=== PATIENT | male | born 1970 | race Caucasian/White ===

== ENCOUNTER 2020-03-18 13:18 | Inpatient (IN) | payer SELFPAY ==
[~2020-03-18] VITALS: Ht 177.8 cm; Wt 98.3 kg
[2020-03-18] MEDS ORDERED: ADENOSINE 6 MG/2 ML ONE ×2 (13:42→14:03)
[2020-03-18] MEDS ORDERED: SODIUM CHLORIDE FLUSH 10ML SYR IVF ONE (14:00)
[2020-03-18] MEDS ORDERED: ONDANSETRON 2MG/ML, 2ML IVPush ONE ×2 (14:00→14:30)
[2020-03-18] MEDS ORDERED: ASPIRIN 81 MG TABLET CHEW PO ONE (14:00)
[2020-03-18] MEDS ORDERED: DILTIAZEM 5 MG/ML, 5ML ONE (14:06)
--- NOTE | 2020-03-18 14:10 | NUR ---
pt presents to ED with c/o n/v, chest pain, generalized abd pain, diaphoresis onset yesterday 1800. pt has hx svt. pt awake, drowsy, oriented x4. resps even and unlabored. 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 piv placed to lac 18g, positional. at direction of MD Mullen, 1355 6 mg adenosine admin with no response. left EJ started by this RN, 18 g. 6 mg adenosine admin at 1401 with no response. 12 mg adenosine admin at 1403 with no response. ordered 10mg diltiazem IV push, and prep for electrical cardioversion. 10mg diltiazem pushed slowly IV at 1410, HR remains 200-2110 SVT., s/o at bedside.
[2020-03-18] MEDS ORDERED: ASPIRIN 81 MG TABLET CHEW ONE (14:17)
[2020-03-18] MEDS ORDERED: MAGNESIUM SULFATE/D5W 100 ML ONE (14:21)
[2020-03-18] MEDS ORDERED: MAGNESIUM SULFATE 1 GM in SODIUM CHLORIDE 0.9% 100 ML IVPB ONE (14:30)
[2020-03-18] MEDS ORDERED: ADENOSINE 6 MG/2 ML IVPush ONE ×2 (14:30)
[2020-03-18] MEDS ORDERED: PLEASE ENTER ALLERGIES MC SCH (14:30)
[2020-03-18] MEDS ORDERED: DILTIAZEM 5 MG/ML, 5ML IV ONE (14:30)
[2020-03-18] MEDS ORDERED: ETOMIDATE 20 MG/10 ML IVPush ONE (14:30)
[2020-03-18] MEDS ORDERED: VERAPAMIL 2.5 MG/ML, 2ML IVPush ONE (14:30)
[2020-03-18] MEDS ORDERED: VERAPAMIL 2.5 MG/ML, 2ML ONE (14:31)
[2020-03-18] MEDS ORDERED: ONDANSETRON 2MG/ML, 2ML ONE ×2 (14:32→18:03)
[2020-03-18 14:47] LABS: BASOPHILS % (AUTO) 1 % (0-1); EOSINOPHILS % (AUTO) 1 % (1-7); LYMPHOCYTES % (AUTO) 8 % (22-44); MEAN CORPUSCULAR HEMOGLOBIN 32.5 pg (27.5-34.5); MEAN CORPUSCULAR HGB CONC 32.4 g/dL (33.2-36.2); MEAN PLATELET VOLUME 8.1 fL (7.4-10.4); MONOCYTES % (AUTO) 6 % (2-9); NEUTROPHILS % (AUTO) 84 % (42-75); PLATELET COUNT 299 x10^3/uL (130-400); RED BLOOD COUNT 5.05 x10^6/uL (4.38-5.82); RED CELL DISTRIBUTION WIDTH 13.3 % (9.4-14.8)
--- NOTE | 2020-03-18 14:50 | NUR ---
approx 1 min after verapamil administration (pushed slowly over 3 min), pt converted to NSR/sinus tach rate 80s-90s. pt has occaisional pvc. MD Mullen at bedside for administration. repeat EKG taken and reviewed by MD once pt converted. MD aware pt saturating 91% on 7L oxygen via NC. pt awake, drowsy, oriented. resps even and unlabored. RN instructed to hold aspirin at this time until it is certain pt will not need electrical cardioversion.
[2020-03-18 14:57] LABS: T4 (THYROXINE) 5.5 mcg/dL (4.5-12.1)
[2020-03-18 14:59] LABS: ALBUMIN 3.5 g/dL (3.4-5.0); ANION GAP 7 mmol/L (5-15); CALCIUM 8.7 mg/dL (8.5-10.1); CHLORIDE 109 mmol/L (98-107); CREATININE 1.57 mg/dL (0.7-1.3)
[2020-03-18 15:04] LABS: TROPONIN I 0.421 ng/mL (0.000-0.045)
[2020-03-18 15:07] LABS: MD SCAN
--- NOTE | 2020-03-18 15:09 | NUR ---
RADIOLOGY PAGED TO PERFORM CXR.
--- NOTE | 2020-03-18 15:18 | NUR ---
REPORT GIVEN TO MARLEN ROBERTSON WHO IS ASSUMING CARE. 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
--- NOTE | 2020-03-18 15:20 | NUR ---
GLADIS MORAN AWARE OF TROP 0.421 , NOTIFIED PT MEETING [facility] CRITERIA, NO SOURCE OF INFECTION AT THIS TIME. Addendum: 03/18/20 at 1521 by ANAYA GLADIS MORAN AWARE OF TROP 0.421 , NOTIFIED PT MEETING [facility] CRITERIA, NO SOURCE OF INFECTION AT THIS TIME. STATES HE DOES NOT SUSPECT SEPSIS AT THIS TIME.
--- NOTE | 2020-03-18 15:28 | NUR ---
REPORT FROM FRAN RN WITH ASSESSMENT PATIENT HR NOW 80-95 (NO P WAVE NOTED). ASLSO POX 88 ON 7L OXYMASK NO WOB NOTED, LUNGS CLEAR BILATERALLY PROVIDER AWARE NO CHEST PAIN OR SOB MEDICATED PER EMAR WITH 162 OF ASPIRIN
--- NOTE | 2020-03-18 15:42 | NUR ---
CXR AT BEDSIDE
--- NOTE | 2020-03-18 16:15 | NUR ---
to ct scan remain in non p wave rhythm at 90bpm remains without pain/sob Still requiring 7l/min via mask
[2020-03-18] MEDS ORDERED: OMNIPAQUE 350 MG/ML, 100ML BOTTLE ONE (16:36)
--- NOTE | 2020-03-18 16:39 | NUR ---
BACK FROM CT SCAN. RHYTHM CHANGE NOTED (RATE REMAIN 80-90) REPEAT EKG OBTAINE. PATIENT REMAINS ASYMPTOMATIC
[2020-03-18] MEDS ORDERED: LORazepam 0.5MG TABLET PO PRN (17:30)
[2020-03-18] MEDS ORDERED: LORazepam 1MG TABLET PO PRN ×4 (17:30)
[2020-03-18] MEDS ORDERED: ONDANSETRON 2MG/ML, 2ML IVPush PRN (17:30)
[2020-03-18] MEDS ORDERED: ONDANSETRON ODT 4 MG PO PRN (17:30)
[2020-03-18] MEDS ORDERED: SENNA/DOCUSATE TABLET PO PRN (17:30)
[2020-03-18] MEDS ORDERED: ACETAMINOPHEN 500 MG TABLET PO PRN (17:30)
[2020-03-18] MEDS: METOPROLOL TARTRATE 25 MG TAB PO SCH ×2 (18:00→18:52)
[2020-03-18] MEDS ORDERED: ENOXAPARIN 40 MG/0.4 ML ONE (18:02)
[2020-03-18] MEDS ORDERED: LORazepam 1MG TABLET ONE (18:03)
[2020-03-18] MEDS: LACTATED RINGERS 1,000 ML IV SCH (18:36)
[2020-03-18] MEDS: ENOXAPARIN 40 MG/0.4 ML SQ SCH (18:37)
--- NOTE | 2020-03-18 18:39 | NUR ---
METOPROLOL HELD-B/P 100/60
--- NOTE | 2020-03-18 18:45 | NUR ---
Dr. solorio called uin regard to holding metoprolol-provider would like patient to have med regardless. 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
[2020-03-18] MEDS ORDERED: METOPROLOL TARTRATE 25 MG TAB ONE (18:50)
[2020-03-18 19:15] VITALS: BP 116/83
[2020-03-18] MEDS ORDERED: NITROGLYCERIN 0.4 MG BOTTLE (25 TABS) SL PRN (23:30)
[2020-03-18] MEDS ORDERED: NITROGLYCERIN 0.4 MG/SPRAY SL PRN (23:30)
[2020-03-18 23:35] VITALS: BP 132/79
[2020-03-18] MEDS ORDERED: MULT-658 PO (23:41)
[2020-03-19] MEDS ORDERED: PROPOFOL 10 MG/ML, 100ML IV ONE
[2020-03-19] MEDS ORDERED: AMIODARONE 50 MG/ML, 3ML ONE
[2020-03-19] MEDS ORDERED: ADENOSINE 6 MG/2 ML ONE
[2020-03-19 00:13] VITALS: BP 135/80
[2020-03-19] MEDS ORDERED: LORazepam 2 MG/ML, 1ML IV PRN ×3 (00:30)
[2020-03-19] MEDS ORDERED: LORazepam 2 MG/ML, 1ML ONE ×2 (00:31→00:32)
[2020-03-19] MEDS: LORazepam 2 MG/ML, 1ML IV PRN ×2 (00:57→06:10)
[2020-03-19 03:36] LABS: BASOPHILS % (AUTO) 0 % (0-1); EOSINOPHILS % (AUTO) 1 % (1-7); LYMPHOCYTES % (AUTO) 15 % (22-44); MEAN CORPUSCULAR HEMOGLOBIN 32.7 pg (27.5-34.5); MEAN CORPUSCULAR HGB CONC 33.3 g/dL (33.2-36.2); MONOCYTES % (AUTO) 6 % (2-9); NEUTROPHILS % (AUTO) 78 % (42-75); PLATELET COUNT 246 x10^3/uL (130-400); RED BLOOD COUNT 4.92 x10^6/uL (4.38-5.82); RED CELL DISTRIBUTION WIDTH 13.5 % (9.4-14.8)
[2020-03-19 03:42] LABS: MD NO
[2020-03-19 03:45] LABS: ALANINE AMINOTRANSFERASE 225 U/L (12-78); ALBUMIN 3.3 g/dL (3.4-5.0); ANION GAP 6 mmol/L (5-15); CALCIUM 8.5 mg/dL (8.5-10.1); CHLORIDE 102 mmol/L (98-107); CHOLESTEROL, TOTAL 137 mg/dL (140-239); CREATININE 1.33 mg/dL (0.7-1.3); TRIGLYCERIDES 89 mg/dL (50-200); VLDL CHOLESTEROL 18 mg/dL (0-25)
[2020-03-19 03:47] LABS: ALKALINE PHOSPHATASE 84 U/L (45-117); BILIRUBIN,TOTAL 1.7 mg/dL (0.2-1.0); CHOL/HDL RATIO 1.5; HDL CHOL % 69 % (26-37); HDL CHOLESTEROL (DIRECT) 94 mg/dL (40-60); LDL CHOLESTEROL,CALCULATED 25 mg/dL (54-169); LDL/HDL RATIO 0.3 (0.5-3.0); TOTAL PROTEIN 6.6 g/dL (6.4-8.2)
[2020-03-19 03:54] LABS: TROPONIN I 0.527 ng/mL (0.000-0.045)
[2020-03-19] MEDS: LACTATED RINGERS 1,000 ML IV SCH (04:31)
[2020-03-19] MEDS: METOPROLOL TARTRATE 25 MG TAB PO SCH ×2 (06:16→17:31)
[2020-03-19 07:20] VITALS: BP 115/83
[2020-03-19] MEDS: MULTIVITAMIN 1 TABLET PO SCH (08:54)
[2020-03-19] MEDS: THIAMINE 100MG TABLET PO SCH (08:55)
[2020-03-19] MEDS: FOLIC ACID 1 MG TABLET PO SCH (08:55)
[2020-03-19 11:44] LABS: MICROSCOPIC NOT IND
[2020-03-19 13:24] LABS: AMPHETAMINE SCREEN, URINE Positive (Negative); BARBITURATE SCREEN, URINE Negative (Negative); BENZODIAZEPINE SCREEN, URINE Negative (Negative); CANNABINOID SCREEN, URINE Positive (Negative); COCAINE SCREEN, URINE Negative (Negative); METHADONE SCREEN, URINE Negative (Negative)
[2020-03-19 13:25] LABS: OPIATE SCREEN, URINE Negative (Negative)
[2020-03-19 13:30] VITALS: BP 101/59
[2020-03-19] MEDS: ENOXAPARIN 40 MG/0.4 ML SQ SCH (17:31)
[2020-03-19 19:58] VITALS: BP 108/82
[2020-03-20 01:48] VITALS: BP 105/71
[2020-03-20 05:17] LABS: BASOPHILS % (AUTO) 1 % (0-1); EOSINOPHILS % (AUTO) 3 % (1-7); LYMPHOCYTES % (AUTO) 19 % (22-44); MEAN CORPUSCULAR HEMOGLOBIN 32.9 pg (27.5-34.5); MEAN CORPUSCULAR HGB CONC 33.1 g/dL (33.2-36.2); MEAN PLATELET VOLUME 8.6 fL (7.4-10.4); MONOCYTES % (AUTO) 7 % (2-9); NEUTROPHILS % (AUTO) 71 % (42-75); PLATELET COUNT 196 x10^3/uL (130-400); RED BLOOD COUNT 4.67 x10^6/uL (4.38-5.82); RED CELL DISTRIBUTION WIDTH 13.5 % (9.4-14.8)
[2020-03-20 05:27] LABS: MD NO
[2020-03-20 05:31] LABS: ALBUMIN 2.8 g/dL (3.4-5.0); ANION GAP 4 mmol/L (5-15); CALCIUM 8.4 mg/dL (8.5-10.1); CHLORIDE 106 mmol/L (98-107)
[2020-03-20 05:34] LABS: ALANINE AMINOTRANSFERASE 396 U/L (12-78); ALKALINE PHOSPHATASE 134 U/L (45-117); BILIRUBIN,TOTAL 1.2 mg/dL (0.2-1.0); CREATININE 0.94 mg/dL (0.7-1.3); TOTAL PROTEIN 6.4 g/dL (6.4-8.2)
[2020-03-20] MEDS: METOPROLOL TARTRATE 25 MG TAB PO SCH (06:07)
[2020-03-20] MEDS: LACTATED RINGERS 1,000 ML IV SCH (06:07)
[2020-03-20 06:09] VITALS: BP 103/70
[2020-03-20 06:55] VITALS: BP 120/86
[2020-03-20] MEDS: MULTIVITAMIN 1 TABLET PO SCH (08:43)
[2020-03-20] MEDS: THIAMINE 100MG TABLET PO SCH (08:43)
[2020-03-20] MEDS: FOLIC ACID 1 MG TABLET PO SCH (08:43)
[2020-03-20] MEDS ORDERED: SPIRONOLACTONE 25 MG TABLET PO SCH (09:00)
[2020-03-20] MEDS: CAPTOPRIL 12.5 MG TABLET PO SCH ×3 (09:00→21:36)
[2020-03-20] MEDS ORDERED: CAPTOPRIL 25 MG TABLET ONE (09:18)
[2020-03-20] MEDS: MAGNESIUM OXIDE 400 MG TABLET PO SCH (09:24)
[2020-03-20] MEDS: METOPROLOL SUCCINATE 50 MG TAB.ER.24H PO SCH (09:27)
[2020-03-20 13:20] VITALS: BP 120/68
[2020-03-20] MEDS ORDERED: OMNIPAQUE 350 MG/ML, 100ML BOTTLE ONE (16:05)
[2020-03-20] MEDS: ENOXAPARIN 40 MG/0.4 ML SQ SCH (17:22)
[2020-03-20 21:35] VITALS: BP 98/68
[2020-03-21 02:43] VITALS: BP 75/48
[2020-03-21 03:08] VITALS: BP 102/72
[2020-03-21 03:09] LABS: BASOPHILS % (AUTO) 1 % (0-1); EOSINOPHILS % (AUTO) 6 % (1-7); LYMPHOCYTES % (AUTO) 24 % (22-44); MEAN PLATELET VOLUME 8.4 fL (7.4-10.4); MONOCYTES % (AUTO) 8 % (2-9); NEUTROPHILS % (AUTO) 61 % (42-75); PLATELET COUNT 226 x10^3/uL (130-400); RED BLOOD COUNT 5.13 x10^6/uL (4.38-5.82); RED CELL DISTRIBUTION WIDTH 13.8 % (9.4-14.8)
[2020-03-21 03:21] LABS: ALANINE AMINOTRANSFERASE 273 U/L (12-78); ANION GAP 3 mmol/L (5-15); CALCIUM 8.7 mg/dL (8.5-10.1); CHLORIDE 107 mmol/L (98-107); CREATININE 1.08 mg/dL (0.7-1.3)
[2020-03-21 03:26] LABS: ALKALINE PHOSPHATASE 124 U/L (45-117); TOTAL PROTEIN 6.8 g/dL (6.4-8.2)
[2020-03-21 03:30] LABS: MD NO
[2020-03-21] MEDS ORDERED: FILTER 0.22 MICRON IV ONE (03:30)
[2020-03-21] MEDS ORDERED: AMIODARONE 50 MG/ML, 3ML IVPush ONE (03:30)
[2020-03-21] MEDS ORDERED: AMIODARONE 150 MG in DEXTROSE 5% 100 ML IV ONE (03:30)
[2020-03-21] MEDS ORDERED: PROPOFOL 100 ML IV ONE (05:11)
[2020-03-21] MEDS ORDERED: AMIODARONE 450 MG in DEXTROSE 5% 241 ML IV PRN (05:30)
[2020-03-21] MEDS ORDERED: FILTER 0.22 MICRON IV PRN (05:30)
[2020-03-21] MEDS: METOPROLOL SUCCINATE 50 MG TAB.ER.24H PO SCH ×2 (07:12→10:04)
[2020-03-21 07:20] VITALS: BP 105/77
[2020-03-21] MEDS: MAGNESIUM OXIDE 400 MG TABLET PO SCH (09:03)
[2020-03-21] MEDS: FOLIC ACID 1 MG TABLET PO SCH (09:04)
[2020-03-21] MEDS: MULTIVITAMIN 1 TABLET PO SCH (09:04)
[2020-03-21] MEDS: THIAMINE 100MG TABLET PO SCH (09:04)
[2020-03-21] MEDS: CAPTOPRIL 12.5 MG TABLET PO SCH ×3 (09:04→21:54)
[2020-03-21] MEDS: SPIRONOLACTONE 25 MG TABLET PO SCH (09:04)
[2020-03-21] MEDS: SODIUM CHLORIDE 0.9% 1,000 ML IV SCH ×3 (10:38→21:30)
[2020-03-21] MEDS ORDERED: MIDAZOLAM 1 MG/ML, 5ML ONE (11:53)
[2020-03-21] MEDS ORDERED: FENTANYL PF 100 MCG/2ML ONE (11:53)
[2020-03-21] MEDS ORDERED: VERAPAMIL 2.5 MG/ML, 2ML ONE (11:54)
[2020-03-21] MEDS ORDERED: TICAGRELOR 90 MG TABLET ONE (11:54)
[2020-03-21] MEDS ORDERED: BIVALIRUDIN 250 MG ONE (11:54)
[2020-03-21] MEDS ORDERED: HEPARIN 1,000 UNITS/ML, 10ML ONE (11:54)
[2020-03-21] MEDS ORDERED: LIDOCAINE-MPF 1%, 5ML ONE (11:54)
[2020-03-21 14:25] VITALS: BP 107/75
[2020-03-21] MEDS: ENOXAPARIN 40 MG/0.4 ML SQ SCH (15:59)
[2020-03-21] MEDS ORDERED: SODIUM CHLORIDE 0.9% 1,000 ML IV SCH (16:00)
[2020-03-21 20:25] VITALS: BP 104/70
[2020-03-22 01:29] VITALS: BP 94/61
[2020-03-22 05:43] LABS: BASOPHILS % (AUTO) 1 % (0-1); EOSINOPHILS % (AUTO) 9 % (1-7); LYMPHOCYTES % (AUTO) 15 % (22-44); MEAN CORPUSCULAR HEMOGLOBIN 32.9 pg (27.5-34.5); MEAN CORPUSCULAR HGB CONC 33.1 g/dL (33.2-36.2); MEAN PLATELET VOLUME 8.6 fL (7.4-10.4); MONOCYTES % (AUTO) 8 % (2-9); NEUTROPHILS % (AUTO) 67 % (42-75); PLATELET COUNT 238 x10^3/uL (130-400); RED BLOOD COUNT 4.51 x10^6/uL (4.38-5.82); RED CELL DISTRIBUTION WIDTH 13.2 % (9.4-14.8)
[2020-03-22 05:45] LABS: MD NO
[2020-03-22 06:01] LABS: ALANINE AMINOTRANSFERASE 197 U/L (12-78); ALBUMIN 2.8 g/dL (3.4-5.0); ANION GAP 5 mmol/L (5-15); CALCIUM 8.7 mg/dL (8.5-10.1); CHLORIDE 112 mmol/L (98-107); CREATININE 1.05 mg/dL (0.7-1.3)
[2020-03-22 06:04] LABS: ALKALINE PHOSPHATASE 109 U/L (45-117); BILIRUBIN,TOTAL 0.8 mg/dL (0.2-1.0); TOTAL PROTEIN 6.2 g/dL (6.4-8.2)
[2020-03-22] MEDS: SODIUM CHLORIDE 0.9% 1,000 ML IV SCH ×2 (06:30→20:20)
[2020-03-22 06:42] VITALS: BP 113/76
[2020-03-22] MEDS: FOLIC ACID 1 MG TABLET PO SCH (07:58)
[2020-03-22] MEDS: MULTIVITAMIN 1 TABLET PO SCH (07:58)
[2020-03-22] MEDS: SPIRONOLACTONE 25 MG TABLET PO SCH (07:58)
[2020-03-22] MEDS: THIAMINE 100MG TABLET PO SCH (07:59)
[2020-03-22] MEDS: MAGNESIUM OXIDE 400 MG TABLET PO SCH (07:59)
[2020-03-22] MEDS: CAPTOPRIL 12.5 MG TABLET PO SCH ×3 (08:00→20:20)
[2020-03-22 12:11] VITALS: BP 110/73
[2020-03-22] MEDS ORDERED: LIDOCAINE 1%, 20ML ONE (12:15)
[2020-03-22] MEDS ORDERED: MIDAZOLAM 1 MG/ML, 5ML ONE (12:15)
[2020-03-22] MEDS ORDERED: FENTANYL PF 250 MCG/5ML ONE (12:15)
[2020-03-22] MEDS ORDERED: ISOPROTERENOL 0.2MG/ML, 5ML ONE (12:15)
[2020-03-22] MEDS ORDERED: ADENOSINE 6 MG/2 ML ONE (13:00)
[2020-03-22] MEDS ORDERED: IBUTILIDE ONE (13:05)
[2020-03-22] MEDS ORDERED: PROPOFOL 10 MG/ML, 20ML ONE (13:54)
[2020-03-22] MEDS ORDERED: ONDANSETRON 2MG/ML, 2ML ONE (13:54)
[2020-03-22] MEDS ORDERED: DEXAMETHASONE 4 MG/ML, 1ML ONE (13:54)
[2020-03-22] MEDS ORDERED: SUCCINYLCHOLINE 20 MG/ML, 10ML ONE (13:54)
[2020-03-22] MEDS ORDERED: PHENYLEPHRINE 10 MG/ML ONE (13:59)
[2020-03-22] MEDS ORDERED: ONDANSETRON 2MG/ML, 2ML IVPush PRN (15:30)
[2020-03-22] MEDS ORDERED: LABETALOL 5MG/ML, 20ML IV PRN (15:30)
[2020-03-22] MEDS ORDERED: MEPERIDINE/PF 25MG/0.5ML IVPush PRN (15:30)
[2020-03-22] MEDS ORDERED: hydrALAzine 20 MG/ML, 1ML IV PRN (15:30)
[2020-03-22] MEDS ORDERED: EPHEDRINE 50 MG/ML, 1ML IVPush PRN (15:30)
[2020-03-22] MEDS ORDERED: ACETAMINOPHEN 325 MG TABLET PO PRN (15:30)
[2020-03-22] MEDS ORDERED: HYDROmorphone 1 MG/ML, 1ML INJ IVPush PRN (15:30)
[2020-03-22] MEDS ORDERED: OXYcodone 5 MG/5 ML ORAL.SOL UDC PO PRN (15:30)
[2020-03-22] MEDS ORDERED: FENTANYL PF 100 MCG/2ML IV PRN (15:30)
[2020-03-22] MEDS ORDERED: PROMETHAZINE 25 MG/ML, 1ML IVPush PRN (15:30)
[2020-03-22] MEDS: ENOXAPARIN 40 MG/0.4 ML SQ SCH (16:13)
[2020-03-22 20:35] VITALS: BP 112/76
[2020-03-23 00:20] VITALS: BP 105/70
[2020-03-23 04:54] LABS: BASOPHILS % (AUTO) 1 % (0-1); EOSINOPHILS % (AUTO) 1 % (1-7); LYMPHOCYTES % (AUTO) 8 % (22-44); MEAN CORPUSCULAR HEMOGLOBIN 33.5 pg (27.5-34.5); MEAN CORPUSCULAR HGB CONC 33.8 g/dL (33.2-36.2); MEAN PLATELET VOLUME 8.3 fL (7.4-10.4); MONOCYTES % (AUTO) 9 % (2-9); NEUTROPHILS % (AUTO) 81 % (42-75); PLATELET COUNT 272 x10^3/uL (130-400); RED BLOOD COUNT 4.66 x10^6/uL (4.38-5.82); RED CELL DISTRIBUTION WIDTH 13.2 % (9.4-14.8)
[2020-03-23 05:00] LABS: MD NO
[2020-03-23 05:08] LABS: ALBUMIN 2.9 g/dL (3.4-5.0); ANION GAP 4 mmol/L (5-15); CHLORIDE 106 mmol/L (98-107)
[2020-03-23 05:13] LABS: ALANINE AMINOTRANSFERASE 177 U/L (12-78); ALKALINE PHOSPHATASE 111 U/L (45-117); BILIRUBIN,TOTAL 0.8 mg/dL (0.2-1.0); CALCIUM 8.8 mg/dL (8.5-10.1); CREATININE 1.16 mg/dL (0.7-1.3); TOTAL PROTEIN 6.6 g/dL (6.4-8.2)
[2020-03-23 06:03] VITALS: BP 101/70
[2020-03-23] MEDS: METOPROLOL SUCCINATE 50 MG TAB.ER.24H PO SCH (06:05)
[2020-03-23 08:22] VITALS: BP 113/83
[2020-03-23] MEDS ORDERED: LISINOPRIL 5 MG TABLET PO SCH (09:00)
[2020-03-23] MEDS ORDERED: ASPIRIN 325 MG TABLET PO SCH (09:00)
[2020-03-23] MEDS: THIAMINE 100MG TABLET PO SCH (09:01)
[2020-03-23] MEDS: FOLIC ACID 1 MG TABLET PO SCH (09:01)
[2020-03-23] MEDS: MAGNESIUM OXIDE 400 MG TABLET PO SCH (09:01)
[2020-03-23] MEDS: SPIRONOLACTONE 25 MG TABLET PO SCH (09:01)
[2020-03-23] MEDS: MULTIVITAMIN 1 TABLET PO SCH (09:01)
[2020-03-23] MEDS ORDERED: LISI5TAB7 PO (12:30)
[2020-03-23] MEDS ORDERED: ASPI325T17 PO (12:30)
[2020-03-23] MEDS ORDERED: METO-93 PO (12:30)
[2020-03-23] MEDS ORDERED: SPIR25TA PO (12:30)
[2020-03-23 13:45] VITALS: BP 118/72
== END 2020-03-23 15:40 | disposition home or self-care (01) | DRG 273 ==
LOC: ED 15:07 → INTOOBSV 16:07 → EDIP 16:07 → 5SO 19:09 → OBSVTOIN 03-19 12:24 → DCLOUNGE 03-23 15:18
PROVIDERS: ADMIT Internal Medicine; ATTEND Family Medicine
PROC: 5A2204Z Restoration of Cardiac Rhythm, Single (ICD-10-PCS; 2020-03-21)
PROC: 4A023N7 Measurement of Cardiac Sampling and Pressure, Left Heart, Percutaneous Approach (ICD-10-PCS; 2020-03-21)
PROC: B2111ZZ Fluoroscopy of Multiple Coronary Arteries using Low Osmolar Contrast (ICD-10-PCS; 2020-03-21)
PROC: B2151ZZ Fluoroscopy of Left Heart using Low Osmolar Contrast (ICD-10-PCS; 2020-03-21)
PROC: 4A023FZ Measurement of Cardiac Rhythm, Percutaneous Approach (ICD-10-PCS; 2020-03-22)
PROC: 4A0234Z Measurement of Cardiac Electrical Activity, Percutaneous Approach (ICD-10-PCS; 2020-03-22)
PROC: 02K83ZZ Map Conduction Mechanism, Percutaneous Approach (ICD-10-PCS; 2020-03-22)
PROC: 02583ZZ Destruction of Conduction Mechanism, Percutaneous Approach (ICD-10-PCS; principal; 2020-03-22 16:30)
DX: I47.1 Supraventricular tachycardia (principal); J96.01 Acute respiratory failure with hypoxia; I21.A1 Myocardial infarction type 2; I50.23 Acute on chronic systolic (congestive) heart failure; N17.0 Acute kidney failure with tubular necrosis; I42.0 Dilated cardiomyopathy; R65.10 Systemic inflammatory response syndrome (SIRS) of non-infectious origin without acute organ dysfunction; F12.10 Cannabis abuse, uncomplicated; I34.0 Nonrheumatic mitral (valve) insufficiency; E86.0 Dehydration; F10.10 Alcohol abuse, uncomplicated; F41.9 Anxiety disorder, unspecified; Y90.9 Presence of alcohol in blood, level not specified; E66.3 Overweight; Z20.828 Contact with and (suspected) exposure to other viral communicable diseases; I49.3 Ventricular premature depolarization; I47.2 Ventricular tachycardia; Z87.442 Personal history of urinary calculi; Z56.0 Unemployment, unspecified; Z79.899 Other long term (current) drug therapy; Z68.31 Body mass index [BMI] 31.0-31.9, adult
CPT/HCPCS: 36415; 84145; 92960; 96365; 96375; 99291; J3490; 71045; 71275; 74178; 76700; 80048; 80053; 80061; 80307; 81003; 82040; 83036; 83735; 83880; 84436; 84443; 84484; 85025; 87635; 93005; 93306; 93308; 93321; 93325; 93462; 93613; 93623; 93653; 93655; 93662; C1732; C1766; C1893; C1894; G0378; J0153; J0583; J1100; J1644; J1650; J2250; J2405; J2704; J3010; J3475; J7060; Q0162; Q9967; C1730; C1759; C2630; J0282; J0330; J1742; J2060; J2370; J7030; J7120; Q0177